=== PATIENT | female | born 1990 ===

== ENCOUNTER 2017-08-21 20:02 | Observation (INO) | payer MEDICAID, OTHER ==
--- NOTE | 2017-08-21 21:13 | ED PDOC ---
Lower Extremity Pain/Injury Time Seen by Provider: 08/21/17 21:03 Chief Complaint (Nursing): Lower Extremity Problem/Injury Chief Complaint (Provider): Ankle pain History Per: Patient History/Exam Limitations: no limitations Onset/Duration Of Symptoms: Days (x1) Current Symptoms Are (Timing): Still Present Severity: Moderate Additional Complaint(s): Fifi Mayers is a 26 y/o female with no past medical history. Called to triage to examine patient. She states she fell down multiple stairs and is now complaining of left ankle pain and swelling. There was no head injury or LOC. Denies any numbness or tingling. Upon arrival, ankle appears to be rotated medially. PMD: None - Ankle/Foot Description Of Injury: Fell Past Medical History Reviewed: Historical Data, Nursing Documentation, Vital Signs Vital Signs: Last Vital Signs Temp 98.0 F 08/21/17 21:00 Pulse 70 08/21/17 21:00 Resp 16 08/21/17 21:00 BP 109/71 08/21/17 21:00 Pulse Ox 100 08/21/17 21:00 - Medical History PMH: No Chronic Diseases - Family History Family History: States: Unknown Family Hx - Immunization History Hx Tetanus Toxoid Vaccination: No - Home Medications Home Medications: Ambulatory Orders Medication Instructions Recorded Naproxen [Naprosyn] 500 mg PO Q6 #30 tablet 02/25/16 - Allergies Allergies/Adverse Reactions: Allergies Allergy/AdvReac Type Severity Reaction Status Date / Time No Known Allergies Allergy Verified 02/25/16 17:00 Review of Systems ROS Statement: Except As Marked, All Systems Reviewed And Found Negative Musculoskeletal: Positive for: Foot Pain (Left ankle pain, + swelling and deformity) Neurological: Negative for: Numbness (or tingling) Physical Exam - Reviewed Nursing Documentation Reviewed: Yes Vital Signs Reviewed: Yes - Physical Exam Appears: Positive for: Non-toxic, No Acute Distress Head Exam: Positive for: ATRAUMATIC, NORMAL INSPECTION, NORMOCEPHALIC Skin: Positive for: Normal Color, Warm, Dry Eye Exam: Positive for: EOMI, Normal appearance, PERRL Neck: Positive for: Normal, Supple Extremity: Positive for: Tenderness (to left ankle), Deformity (to left ankle; rotation medially), Swelling (to left lateral ankle), Other (non-tender left anterior tibia and left knee) Neurologic/Psych: Positive for: Alert, Oriented - Laboratory Results Result Diagrams: 08/21/17 21:23 08/21/17 21:23 - ECG O2 Sat by Pulse Oximetry: 100 (RA) Pulse Ox Interpretation: Normal - Progress ED Course And Treament: morphine 2 mg iv x 1 dose Xry of ankle: no obvious fx xry of foot: possible dislocation noted xry tib fib: wnl seen by podiatry resident. CT of foot/coco ordered anesthesiology Dr. Facundo butler to assist with conscious sedation by podiatry. Medical Decision Making Medical Decision Making: Time: 21:06 Initial Impression: 26 y/o female with left ankle pain and deformity Initial Plan: * BMP * Beta-HCG, quantitative * CBC w/ differential * PTT * Prothrombin time Discussed with podiatry at 21:08. X-rays of left ankle and tib/fib ordered. Pain medicine ordered at 21:09. Scribe Attestation: Documented by Siobhan Menjivar, acting as a scribe for Jose M Gonsalves PA-C Provider Scribe Attestation: All medical record entries made by the Scribe were at my direction and personally dictated by me. I have reviewed the chart and agree that the record accurately reflects my personal performance of the history, physical exam, medical decision making, and the department course for this patient. I have also personally directed, reviewed, and agree with the discharge instructions and disposition. Disposition - Clinical Impression Clinical Impression: Ankle injury - Patient ED Disposition Is Patient to be Admitted: Transfer of Care - Disposition Disposition: Transfer of Care Disposition Time: 00:05 Condition: FAIR Forms: [employer] (Yi) Patient Signed Over To: Sveta Daley
[2017-08-21] MEDS ORDERED: Morphine 4 MG/ML VIAL ONE (21:16)
[2017-08-21 21:29] LABS: BASO % 0.5 % (0.0-2.0); EOS # 0.1 K/uL (0.0-0.7); HEMOGLOBIN 12.6 g/dL (12.0-16.0); LYMPH # 2.7 K/uL (1.0-4.3); LYMPH % 33.2 % (20.0-40.0); MEAN CELL VOLUME 86.6 fl (81.0-99.0); MEAN CORPUSCULAR HEMOGLOBIN 28.2 pg (27.0-31.0); MEAN CORPUSCULAR HGB CONC 32.5 g/dL (33.0-37.0); MEAN PLATELET VOLUME 9.4 fl (7.2-11.7); MONO # 0.6 K/uL (0.0-0.8); MONO % 7.4 % (0.0-10.0); NEUT # 4.7 K/uL (1.8-7.0); NEUT % 57.9 % (50.0-75.0); RBC 4.49 Mil/uL (3.80-5.20); RED CELL DISTRIBUTION WIDTH 12.6 % (11.5-14.5); WHITE BLOOD COUNT 8.1 K/uL (4.8-10.8)
--- NOTE | 2017-08-21 21:38 | CP.PCM.CON ---
History of Present Illness - History of Present Illness History of Present Illness: Podiatry Consult note for Dr. Connelly 26 year old female who denies any PMHx was seen at bedside regarding left ankle pain. She states that tonight around 7 pm she fell down a few stairs. She states that right after the incident she came to the emergency room. She denies hitting her head. Denies any numbness or tingling. States that she only has pain when her ankle is touched. Denies any n/v/f/c/sob/cp. Past Patient History - Infectious Disease Hx of Infectious Diseases: None - Past Social History Smoking Status: Never Smoked - PSYCHIATRIC Hx Substance Use: No - SURGICAL HISTORY Hx Surgeries: No Meds Allergies/Adverse Reactions: Allergies Allergy/AdvReac Type Severity Reaction Status Date / Time No Known Allergies Allergy Verified 02/25/16 17:00 - Medications Medications: Current Medications Morphine Sulfate (Morphine) 2 mg IVP ONCE ONE Stop: 08/21/17 21:26 Last Admin: 08/21/17 21:27 Dose: 2 mg Physical Exam - Constitutional Appears: Well, Non-toxic, No Acute Distress - Extremities Exam Additional comments: Left lower extremity focused exam: Vasc: DP and PT pulses palpable 2/4. CFT < 3 seconds to all digits. Non- pitting edema noted to the left ankle. Derm: No open lesions noted. No erythema noted. Neuro: Gross pedal sensation intact Ortho: Tenderness on palpation to lateral aspect of left ankle. MMT deferred due to pain. At rest, patients foot is plantarflex, and inverted. Patient is able to wiggle toes on left foot - Neurological Exam Neurological exam: Alert, Oriented x3 - Psychiatric Exam Psychiatric exam: Normal Affect, Normal Mood Results - Vital Signs Recent Vital Signs: Last Vital Signs Temp 98.0 F 08/21/17 21:00 Pulse 70 08/21/17 21:00 Resp 16 08/21/17 21:00 BP 109/71 08/21/17 21:00 Pulse Ox 100 08/21/17 21:19 - Labs Result Diagrams: 08/21/17 21:23 08/21/17 21:23 Labs: Laboratory Results - last 24 hr 08/21/17 21:23 WBC 8.1 RBC 4.49 Hgb 12.6 Hct 38.9 MCV 86.6 MCH 28.2 MCHC 32.5 L RDW 12.6 Plt Count 233 MPV 9.4 Neut % (Auto) 57.9 Lymph % (Auto) 33.2 [place] % (Auto) 7.4 Eos % (Auto) 1.0 Baso % (Auto) 0.5 Neut # 4.7 Lymph # 2.7 [place] # 0.6 Eos # 0.1 Baso # 0.0 Assessment & Plan - Assessment and Plan (Free Text) Assessment: 26 year old female with left ankle pain with subtalar joint dislocation Plan: patient examined and evaluated discussed in detail with Dr. Connelly chart, labs, vitals reviewed radiographs reviewed-STJ dislocation noted CT reviewed- STJ dislocation noted consent was obtained and left foot STJ closed reduction was performed under sedation given by anesthiesa Dr. Loredo. The foot was casted with a well padded plaster AO splint. post reduction xrays obtained and showed foot in better alignment patient to remain non-WB to LLE with crutches, patient to keep dressing c/d/i patient to be NPO after midnight podiatry to follow patient while in house
[2017-08-21 21:44] LABS: PARTIAL THROMBOPLASTIN TIME 32.6 Seconds (25.6-37.1); PROTHROMBIN TIME 10.8 Seconds (9.8-13.1)
[2017-08-21 21:54] LABS: CALCIUM 9.2 mg/dL (8.4-10.2); GFR AFRICAN-AMERICAN > 60; GFR NON-AFRICAN AMERICAN > 60
[2017-08-21 21:55] LABS: BLOOD UREA NITROGEN 13 mg/dl (7-17)
[2017-08-21] MEDS ORDERED: Midazolam 2 MG/2 ML VIAL ONE (23:27)
[2017-08-21] MEDS ORDERED: Propofol 10 mg/ml Inj (20 ML) ONE (23:27)
[2017-08-22] MEDS ORDERED: Oxycodone/Acetaminophen 5/325 mg Tab PO PRN (03:00)
[2017-08-22] MEDS: Oxycodone/Acetaminophen 5/325 mg Tab PO PRN (03:38)
--- NOTE | 2017-08-22 06:27 | CP.PCM.HP ---
History of Present Illness - History of Present Illness History of Present Illness: 26 yr old F with no significant PMHx presented to ED with complaint of left ankle and foot swelling and deformity with pain after falling down a few steps. Patient reports she was going down the stairs and missed some steps at the end which caused her to fall. Denies head trauma, syncope, SOB, n/v or chest pain. Denies numbness or tingling in LLE, can move and feel all toes. Reports pain is 10/10 when her left foot is touched, otherwise she has an achy pain 5/10. Is tolerating PO diet, has normal urine and stool output. 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, [facility] Meds: none Allergies: NKDA ED Course: -Labs: CBC wnl, BMP wnl, Coags wnl, Beta Hcg negative -Left foot xray: subtalar joint dislocation -Podiatry: performed closed reduction under sedation, post-reduction xrays showed better alignment Present on Admission - Present on Admission Any Indicators Present on Admission: No History of DVT/PE: No History of Uncontrolled Diabetes: No Urinary Catheter: No Decubitus Ulcer Present: No Review of Systems - Review of Systems All systems: reviewed and no additional remarkable complaints except (for what is mentioned in the HPI) - Constitutional Constitutional: absent: Chills, Fever - EENT Eyes: absent: Change in Vision Ears: absent: Dizziness - Cardiovascular Cardiovascular: absent: Chest Pain, Dyspnea on Exertion, Lightheadedness - Respiratory Respiratory: absent: Cough, Dyspnea - Gastrointestinal Gastrointestinal: absent: Abdominal Pain, Nausea - Genitourinary Genitourinary: absent: Dysuria, Flank Pain, Hematuria - Reproductive: Female Reproductive:Female: Menses 1-7 Days - Musculoskeletal Musculoskeletal: Joint Swelling (left ankle, with deformity) - Integumentary Integumentary: absent: Bleeding Lesions, Unusual Bruising - Neurological Neurological: absent: Dizziness, Headaches - Psychiatric Psychiatric: absent: Confusion, Depression - Hematologic/Lymphatic Hematologic: absent: Easy Bleeding, Easy Bruising Past Patient History - Infectious Disease Hx of Infectious Diseases: None - Past Medical History & Family History Past Medical History?: No - Past Social History Smoking Status: Never Smoked - CARDIAC Hx Cardiac Disorders: No - PULMONARY Hx Respiratory Disorders: No - NEUROLOGICAL Hx Neurological Disorder: No - HEENT Hx HEENT Problems: No - RENAL Hx Chronic Kidney Disease: No - ENDOCRINE/METABOLIC Hx Endocrine Disorders: No - HEMATOLOGICAL/ONCOLOGICAL Hx Blood Disorders: No - INTEGUMENTARY Hx Dermatological Problems: No - MUSCULOSKELETAL/RHEUMATOLOGICAL Hx Musculoskeletal Disorders: No - GENITOURINARY/GYNECOLOGICAL Hx Genitourinary Disorders: No - PSYCHIATRIC Hx Psychophysiologic Disorder: No - SURGICAL HISTORY Hx Surgeries: No - ANESTHESIA Hx Anesthesia: No Hx Anesthesia Reactions: No Meds Allergies/Adverse Reactions: Allergies Allergy/AdvReac Type Severity Reaction Status Date / Time No Known Allergies Allergy Verified 02/25/16 17:00 Physical Exam - Constitutional Appears: No Acute Distress - Head Exam Head Exam: ATRAUMATIC, NORMOCEPHALIC - Eye Exam Eye Exam: EOMI, PERRL (bilateral upper eyelid swelling (patient reports she was crying alot because she doesn't like to be in the hospital)) - ENT Exam ENT Exam: Mucous Membranes Moist - Neck Exam Neck exam: Negative for: Lymphadenopathy, Thyromegaly - Respiratory Exam Respiratory Exam: NORMAL BREATHING PATTERN. absent: Rhonchi, Wheezes - Cardiovascular Exam Cardiovascular Exam: REGULAR RHYTHM, +S1, +S2 - GI/Abdominal Exam GI & Abdominal Exam: Normal Bowel Sounds, Soft. absent: Distended, Tenderness - Extremities Exam Extremities exam: Positive for: full ROM (and normal inspection of right foot), tenderness (left lower extremity in splint from proximal tib/fib to foot, patient can move all toes, normal capillary refill in b/l lower extremities) - Back Exam Back exam: NORMAL INSPECTION - Neurological Exam Neurological exam: Alert, CN II-XII Intact, Oriented x3 - Psychiatric Exam Psychiatric exam: Normal Affect, Normal Mood - Skin Skin Exam: Dry, Intact Results - Vital Signs Recent Vital Signs: Last Vital Signs Temp 98.1 F 08/22/17 03:20 Pulse 83 08/22/17 05:27 Resp 18 08/22/17 05:27 BP 112/63 08/22/17 03:20 Pulse Ox 100 08/22/17 05:27 - Labs Result Diagrams: 08/21/17 21:23 08/21/17 21:23 Labs: Laboratory Results - last 24 hr 08/21/17 08/21/17 08/21/17 21:23 21:23 21:23 WBC 8.1 RBC 4.49 Hgb 12.6 Hct 38.9 MCV 86.6 MCH 28.2 MCHC 32.5 L RDW 12.6 Plt Count 233 MPV 9.4 Neut % (Auto) 57.9 Lymph % (Auto) 33.2 [place] % (Auto) 7.4 Eos % (Auto) 1.0 Baso % (Auto) 0.5 Neut # 4.7 Lymph # 2.7 [place] # 0.6 Eos # 0.1 Baso # 0.0 PT 10.8 INR 1.0 APTT 32.6 Sodium 139 Potassium 4.5 Chloride 107 Carbon Dioxide 22 Anion Gap 15 BUN 13 Creatinine 0.7 Est GFR ( Amer) > 60 Est GFR (Non-Af Amer) > 60 Random Glucose 88 Calcium 9.2 Beta HCG, Quant 08/21/17 21:25 WBC RBC Hgb Hct MCV MCH MCHC RDW Plt Count MPV Neut % (Auto) Lymph % (Auto) [place] % (Auto) Eos % (Auto) Baso % (Auto) Neut # Lymph # [place] # Eos # Baso # PT INR APTT Sodium Potassium Chloride Carbon Dioxide Anion Gap BUN Creatinine Est GFR ( Amer) Est GFR (Non-Af Amer) Random Glucose Calcium Beta HCG, Quant < 2.39 Assessment & Plan - Assessment and Plan (Free Text) Assessment: 26 yr old F with no significant PMHx with left subtalar dislocation s/p closed reduction. 1. Left subtalar dislocation s/p closed reduction -stable -Podiatry on consult: patient to remain NPO for possibility of OR procedure -pain management -non weight bearing -IVF NS at 125 mls/hr 2. DVT prophylaxis -SCD for right lower extremity -will start Lovenox 30mg SC daily pending podiatry re-evaluation this AM - Date & Time Date: 08/22/17 Time: 05:30
[2017-08-22] MEDS: Sodium Chloride 0.9% 1,000 ML IV SCH ×2 (06:39→15:33)
--- NOTE | 2017-08-22 07:10 | CP.PCM.PN ---
Subjective - Date & Time of Evaluation Date of Evaluation: 08/22/17 Time of Evaluation: 07:06 - Subjective Subjective: Podiatry Progress Note - Dr. Connelly 26 year old female unremarkable PMHx seen and evaluated at bedside for left ankle pain s/p STJ dislocation. Patient hemodynamically stable and NAD. Fiance present at bedside. Left leg not elevated. Denies any acute events overnight. Reports mild pain to ankle, well-controlled. Denies any calf pain. Denies N/V/F/ D/C/SOB. Objective - Vital Signs/Intake and Output Vital Signs (last 24 hours): Temp Pulse Resp BP Pulse Ox 98.1 F 83 18 112/63 100 08/22/17 03:20 08/22/17 05:27 08/22/17 05:27 08/22/17 03:20 08/22/17 05:27 Intake and Output: 08/22/17 08/22/17 06:59 18:59 Intake Total 30 Balance 30 - Medications Medications: Current Medications Sodium Chloride (Sodium Chloride 0.9%) 1,000 mls @ 125 mls/hr IV .Q8H YANDY Stop: 08/22/17 21:44 Last Admin: 08/22/17 06:39 Dose: 125 mls/hr Oxycodone/Acetaminophen (Percocet 5/325 Mg Tab) 1 tab PO Q6 PRN PRN Reason: Pain, moderate (4-7) Stop: 08/25/17 03:01 Oxycodone/Acetaminophen (Percocet 5/325 Mg Tab) 2 tab PO Q6 PRN PRN Reason: Pain, severe (8-10) Stop: 08/25/17 03:01 Last Admin: 08/22/17 03:38 Dose: 2 tab - Labs Labs: 08/21/17 21:23 08/21/17 21:23 PT 10.8 Seconds (9.8-13.1) 08/21/17 21:23 INR 1.0 (0.9-1.2) 08/21/17 21:23 APTT 32.6 Seconds (25.6-37.1) 08/21/17 21:23 - Constitutional Appears: Well, Non-toxic, No Acute Distress - Extremities Exam Additional comments: Neurovascular status intact to left digits 1-5. Dressing clean/dry/intact - Neurological Exam Neurological Exam: Alert, Awake, Oriented x3 - Psychiatric Exam Psychiatric exam: Normal Affect, Normal Mood Assessment and Plan - Assessment and Plan (Free Text) Assessment: 26 year old female unremarkable PMHx with left ankle pain with subtalar joint dislocation s/p closed reduction Plan: Patient seen and evaluated at bedside with attending, Dr. Connelly Afebrile, absent leukocytosis radiographs reviewed-STJ dislocation noted -f/u XR show adequate reduction of STJ CT reviewed- STJ dislocation noted AO splint maintained - will continue to monitor Pt NWB LLE with the assistance of crutches L foot and ankle MRI obtained: -Complete tear of the anterior tib-fib ligament and ATFL -Partial thickness tear and high grade sprain of posterior tib-fib ligament and PTFL -TNJ relocated Ortho consult obtained for left knee pain Podiatry will continue to follow patient while in house
--- NOTE | 2017-08-22 10:38 | RAD ---
PROCEDURE: Left Ankle Radiographs. HISTORY: ANKLE INJURY COMPARISON: None FINDINGS: BONES: No fracture. JOINTS: Normal. Ankle mortise maintained. Talar dome intact SOFT TISSUES: Lateral malleolar soft tissue swelling. OTHER FINDINGS: None. IMPRESSION: Lateral malleolar soft tissue swelling without demonstrated fracture or dislocation.
--- NOTE | 2017-08-22 10:38 | RAD ---
PROCEDURE: Radiographs of the left tibia and fibula. HISTORY: INJURY COMPARISON: None available. TECHNIQUE: Frontal and lateral views obtained. FINDINGS: BONES: No fracture or destructive lesion. JOINT SPACES: Unremarkable. OTHER FINDINGS: Lateral malleolar soft tissue swelling. IMPRESSION: Lateral malleolar soft tissue swelling without demonstrated fracture or dislocation.
--- NOTE | 2017-08-22 10:39 | RAD ---
PROCEDURE: Left Foot Radiographs. HISTORY: injury COMPARISON: None. FINDINGS: BONES: Normal. No fracture. JOINTS: Normal. SOFT TISSUES: Lateral malleolar soft tissue swelling. OTHER FINDINGS: None. IMPRESSION: Lateral malleolar soft tissue swelling without demonstrated fracture or dislocation.
--- NOTE | 2017-08-22 10:56 | RAD ---
PROCEDURE: Left Foot Radiographs. HISTORY: left STJ dislocation COMPARISON: None. FINDINGS: Pre and post casted views of the left foot demonstrate no appreciable fracture or dislocation. IMPRESSION: No appreciable fracture or dislocation.
--- NOTE | 2017-08-22 11:39 | CT ---
PROCEDURE: HISTORY: ANKLE INJURY/FOOT INJURY COMPARISON: TECHNIQUE: FINDINGS: No fracture dislocation is observed. There is mild lateral soft tissue swelling extending superiorly along the distal tibia. IMPRESSION: Lateral soft tissue contusion. No fracture.
--- NOTE | 2017-08-22 16:14 | MRI ---
PROCEDURE: MRI of the right ankle HISTORY: left STJ dislocation COMPARISON: Comparison is made to the previous x-ray of the right ankle TECHNIQUE: Axial coronal and sagittal MRI images of the right ankle were obtained without IV contrast administration. FINDINGS: There is complete tear of the anterior tibiofibular ligament. There is partial-thickness tear of the posterior tibiofibular ligament. There is complete tear of the anterior talofibular ligament. There is high-grade sprain and partial-thickness tear of the posterior talofibular ligament. There is also partial thickness tear involving the medial collateral ligaments particulate the tibial navicular ligament. There is no evidence of bone marrow edema to suggest acute fracture. There is no evidence of dislocation at the tibiotalar joint. The talar dome is intact without evidence of defect or bone marrow edema. The talar navicular joint is also intact without evidence of dislocation. There is small amount of fluid seen at the subtalar joint. There is acute injury of the subtalar ligaments. Subcutaneous inflammatory changes and edema noted around the right ankle more prominent posteriorly. There is is small joint effusion seen. The Achilles tendon is intact. The visualized portion of the plantar fasciitis is intact. There is small amount of fluid surrounding the posterior tibial es tendinopathy. There is also small amount of fluid surrounding the peroneal tendon suggestive of acute tendinopathy. Subcutaneous edema noted more prominent at the lateral aspect of the right ankle. IMPRESSION: Acute posttraumatic changes seen with multiple ligaments injury as described above. Complete tear of the anterior tibiofibular ligament and anterior talofibular ligament noted. Partial thickness tear and high-grade sprain noted of the posterior tibiofibular ligament and posterior talofibular. The talonavicular joint is located.
--- NOTE | 2017-08-22 16:31 | MRI ---
PROCEDURE: MRI of the right foot without contrast HISTORY: left STJ dislocation COMPARISON: Comparison is made to previous x-ray of the right foot. TECHNIQUE: Axial coronal and sagittal MRI images of the right foot were obtained without IV contrast administration. FINDINGS: There is no evidence of bone marrow edema or cortical destruction to suggest acute fracture at the right foot. Posttraumatic changes and ligament injury partially imaged in this study noted at the right ankle and proximal portion of the right foot and described in the previous same-day MRI of the right ankle. There are subcutaneous edema noted around the right ankle and proximal right foot. There is mild edema at the 1st and 2nd tarsal metatarsal articulation suspicious for mild grade 1-2 Lisfranc injury. Otherwise the visualized soft tissue of the right foot are grossly unremarkable. IMPRESSION: No evidence of acute fracture or dislocation at the visualized portion of the right foot. Post traumatic soft tissue injury around the right ankle and proximal right foot. Mild grade 1-2 Lisfranc sprain/acute injury.
[2017-08-22] MEDS: Enoxaparin 40 mg Syringe SC ONE ×2 (20:35→20:36)
--- NOTE | 2017-08-23 08:00 | CP.PCM.CON ---
History of Present Illness - History of Present Illness History of Present Illness: Orthopedic consultation Dr. Avery 26F complains of left ankle pain after fall down some stairs, treated by podiatry, now complaining of left knee pain as well. She says she is having some outer thigh pain, but not as bad as knee. Denies numbness/tingling, no prior knee injury. Review of Systems - Review of Systems All systems: reviewed and no additional remarkable complaints except - Constitutional Additional comments: no fever chills - Cardiovascular Cardiovascular: As Per HPI - Respiratory Respiratory: As Per HPI - Musculoskeletal Musculoskeletal: As Per HPI - Neurological Neurological: As Per HPI - Hematologic/Lymphatic Hematologic: absent: As Per HPI, Easy Bleeding, Easy Bruising, Lymphadenopathy, Other Past Patient History - Infectious Disease Hx of Infectious Diseases: None - Past Medical History & Family History Past Medical History?: No - Past Social History Smoking Status: Never Smoked - CARDIAC Hx Cardiac Disorders: No - PULMONARY Hx Respiratory Disorders: No - NEUROLOGICAL Hx Neurological Disorder: No - HEENT Hx HEENT Problems: No - RENAL Hx Chronic Kidney Disease: No - ENDOCRINE/METABOLIC Hx Endocrine Disorders: No - HEMATOLOGICAL/ONCOLOGICAL Hx Blood Disorders: No - INTEGUMENTARY Hx Dermatological Problems: No - MUSCULOSKELETAL/RHEUMATOLOGICAL Hx Musculoskeletal Disorders: No - GENITOURINARY/GYNECOLOGICAL Hx Genitourinary Disorders: No - PSYCHIATRIC Hx Substance Use: No - SURGICAL HISTORY Hx Surgeries: No - ANESTHESIA Hx Anesthesia: No Hx Anesthesia Reactions: No Meds Home Medications: Home Medication List Medication Instructions Recorded Confirmed Type Acetaminophen/Hydrocodone Bi 1 tab PO Q6 PRN #5 tab 08/23/17 Rx [Vicodin 300 mg-5 mg] Ibuprofen [Motrin] 600 mg PO Q8 PRN #30 tab 08/23/17 Rx Allergies/Adverse Reactions: Allergies Allergy/AdvReac Type Severity Reaction Status Date / Time No Known Allergies Allergy Verified 02/25/16 17:00 - Medications Medications: Current Medications Ondansetron HCl (Zofran Tab) 4 mg PO Q4 PRN PRN Reason: Nausea/Vomiting Last Admin: 08/22/17 15:35 Dose: 4 mg Oxycodone/Acetaminophen (Percocet 5/325 Mg Tab) 1 tab PO Q6 PRN PRN Reason: Pain, moderate (4-7) Stop: 08/25/17 03:01 Last Admin: 08/22/17 12:08 Dose: 1 tab Oxycodone/Acetaminophen (Percocet 5/325 Mg Tab) 2 tab PO Q6 PRN PRN Reason: Pain, severe (8-10) Stop: 08/25/17 03:01 Last Admin: 08/22/17 03:38 Dose: 2 tab Physical Exam - Constitutional Appears: Well, No Acute Distress - Head Exam Head Exam: ATRAUMATIC - Expanded Lower Extremities Exam Left Knee exam: full ROM, normal inspection Neuro vacular tendon exam: no vascular compromise (No left knee joint effusion, no erythema, skin intact. Mild laxity to varus/valgus/irais but not painful and good endpoints. TTP anterior knee, generalized. ) - Neurological Exam Neurological exam: Alert, Oriented x3 - Psychiatric Exam Psychiatric exam: Normal Affect, Normal Mood - Skin Skin Exam: Dry, Intact, Normal Color, Warm Results - Vital Signs Recent Vital Signs: Last Vital Signs Temp 97.7 F 08/23/17 00:00 Pulse 74 08/23/17 00:00 Resp 18 08/23/17 00:00 BP 101/64 08/23/17 00:00 Pulse Ox 98 08/23/17 00:00 - Labs Result Diagrams: 08/21/17 21:23 08/21/17 21:23 Labs: Laboratory Results - last 24 hr 08/22/17 12:15 HIV-1 Ab Rapid Screen Non reactive Assessment & Plan (1) Left knee pain Assessment and Plan: left knee pain after fall xrays completed, AP/lat, no noted fracture/dislocation, awaiting official reading left knee MRI continue PT/OT, NWB thigh pain is likely due to muscular pain from lifting heavy splint d/w Dr. Avery, agrees with above Addendum, MRI reviewed, ACL sprain. No orthopedic intervention indicated. Pt can f/u ortho as outpt prn. Ortho stable for d/c Status: Acute Priority: Low Comment: Patient Name / ID : SHARMAINE LIN / [id number]. Exam Date : 08/23/2017 09:30:14 ( Approved ). Study Comment : Sex / Age : F / 26Y. Creator : Jeffrey Mott MD. Dictator : Jeffrey Mott MD. Automation Control Integrator : Asbestos Siding Installer : Jeffrey Mott MD. Approver2 : Report Date : 08/23/2017 11:44 :06. My Comment : . PROCEDURE: MRI Left Knee. HISTORY: Pain. COMPARISON: None available. TECHNIQUE: Multiecho multiplanar sequences were performed through the left knee. FINDINGS: ANTERIOR CRUCIATE LIGAMENT:: Mild increased fluid signal intensity at the distal segment suggest likely sprain favored over partial tear. POSTERIOR CRUCIATE LIGAMENT:: No acute tear identified. MEDIAL MENISCUS:: No acute tear identified. Articular surfaces appear intact throughout. LATERAL MENISCUS:: No acute tear identified. Articular surfaces appear intact throughout. MEDIAL COLLATERAL LIGAMENT:: Intact without acute tear. LATERAL COLLATERAL LIGAMENT COMPLEX:: Intact without acute tear. QUADRICEPS TENDON:: Intact. PATELLAR TENDON:: Intact. CARTILAGE:: Inhomogeneous signal in the patellofemoral cartilage indicates mild chondromalacia. Volume loss at the medial femorotibial compartment indicates the same. JOINT FLUID:: Unremarkable. OSSEOUS STRUCTURES:: Intact. OTHER FINDINGS: Extracapsular soft tissues appear diffusely unremarkable as well. IMPRESSION: Findings suspicious for limited probable sprain rather than partial tear of the distal ACL. Remainder the examination appears unremarkable.
--- NOTE | 2017-08-23 08:06 | CP.PCM.PN ---
Subjective - Date & Time of Evaluation Date of Evaluation: 08/23/17 Time of Evaluation: 08:05 - Subjective Subjective: Podiatry Progress Note - Dr. Connelly 26 year old female unremarkable PMHx seen and evaluated at bedside for left ankle pain s/p STJ dislocation. Patient hemodynamically stable and NAD. Denies any acute events overnight. Reports mild discomfort to LLE, complaining more of left knee pain than ankle pain. Denies any calf pain or SOB. Patient states she worked with physical therapy yesterday with no issues. Denies N/V/F/D/C. Objective - Vital Signs/Intake and Output Vital Signs (last 24 hours): Temp Pulse Resp BP Pulse Ox 97.7 F 74 18 101/64 98 08/23/17 00:00 08/23/17 00:00 08/23/17 00:00 08/23/17 00:00 08/23/17 00:00 - Medications Medications: Current Medications Ondansetron HCl (Zofran Tab) 4 mg PO Q4 PRN PRN Reason: Nausea/Vomiting Last Admin: 08/22/17 15:35 Dose: 4 mg Oxycodone/Acetaminophen (Percocet 5/325 Mg Tab) 1 tab PO Q6 PRN PRN Reason: Pain, moderate (4-7) Stop: 08/25/17 03:01 Last Admin: 08/22/17 12:08 Dose: 1 tab Oxycodone/Acetaminophen (Percocet 5/325 Mg Tab) 2 tab PO Q6 PRN PRN Reason: Pain, severe (8-10) Stop: 08/25/17 03:01 Last Admin: 08/22/17 03:38 Dose: 2 tab - Labs Labs: 08/21/17 21:23 08/21/17 21:23 PT 10.8 Seconds (9.8-13.1) 08/21/17 21:23 INR 1.0 (0.9-1.2) 08/21/17 21:23 APTT 32.6 Seconds (25.6-37.1) 08/21/17 21:23 - Constitutional Appears: Well, Non-toxic, No Acute Distress - Extremities Exam Additional comments: Neurovascular status intact to left digits 1-5. Dressing clean/dry/intact - Neurological Exam Neurological Exam: Alert, Awake, Oriented x3 - Psychiatric Exam Psychiatric exam: Normal Affect, Normal Mood Assessment and Plan - Assessment and Plan (Free Text) Assessment: 26 year old female unremarkable PMHx with left ankle pain with subtalar joint dislocation s/p closed reduction Plan: Patient seen and evaluated at bedside with attending, Dr. Connelly Afebrile radiographs reviewed-STJ dislocation noted -f/u XR show adequate reduction of STJ CT reviewed- STJ dislocation noted AO splint maintained - will continue to monitor Continue use of incentive spirometer Pt NWB LLE with the assistance of crutches -Continue PT L foot and ankle MRI obtained: -Complete tear of the anterior tib-fib ligament and ATFL -Partial thickness tear and high grade sprain of posterior tib-fib ligament and PTFL -TNJ relocated Discussed with patient that she may need future surgery due to ligamentous injury and possible lateral ankle instability. Patient demonstrated verbal understanding Pain mgmt per medicine Advised patient to follow up with attending, Dr. Connelly, in office within 1 week of discharge Podiatry will continue to follow patient while in house
[2017-08-23 08:12] LABS: BARBITURATES, UR NEGATIVE (NEGATIVE); PHENCYCLIDINE, UR NEGATIVE (NEGATIVE)
[2017-08-23 08:16] LABS: BENZODIAZEPINES, UR POSITIVE (NEGATIVE); OPIATES, UR POSITIVE (NEGATIVE)
--- NOTE | 2017-08-23 08:21 | RAD ---
PROCEDURE: Left Knee Radiographs. HISTORY: Pain. COMPARISON: None. FINDINGS: BONES: No acute fracture or destructive bony lesion identified. JOINTS: Normal. No osteoarthritis. JOINT EFFUSION: None. OTHER FINDINGS: None. IMPRESSION: No acute fracture or dislocation left knee. Cast only partially captured covering the upper segment of the left leg obscures fine bony and soft-tissue detail. Visualized distal thigh is unremarkable.
--- NOTE | 2017-08-23 08:34 | CP.PCM.DIS ---
Provider - Provider Date of Admission: 08/22/17 00:40 Attending physician: Chelsy Miguel MD Time Spent in preparation of Discharge (in minutes): 30 Diagnosis - Discharge Diagnosis (1) Ankle injury Status: Acute Priority: Low Comment: keep splint C/D/I and remain NWB to LLE with crutches. f/u [facility] office (2) Left knee pain Status: Acute Priority: Low Comment: f/u Dr. Avery office Hospital Course - Lab Results Lab Results: Most Recent Lab Values WBC 8.1 K/uL (4.8-10.8) 08/21/17 21: RBC 4.49 Mil/uL (3.80-5.20) 08/21/17 21: Hgb 12.6 g/dL (12.0-16.0) 08/21/17 21: Hct 38.9 % (34.0-47.0) 08/21/17 21: MCV 86.6 fl (81.0-99.0) 08/21/17 21: MCH 28.2 pg (27.0-31.0) 08/21/17 21: MCHC 32.5 g/dL (33.0-37.0) L 08/21/17 21: RDW 12.6 % (11.5-14.5) 08/21/17 21: Plt Count 233 K/uL (130-400) 08/21/17 21:23 MPV 9.4 fl (7.2-11.7) 08/21/17 21: Neut % (Auto) 57.9 % (50.0-75.0) 08/21/17 21: Lymph % (Auto) 33.2 % (20.0-40.0) 08/21/17 21: Ball[place] % (Auto) 7.4 % (0.0-10.0) 08/21/17 21: Eos % (Auto) 1.0 % (0.0-4.0) 08/21/17 21: Baso % (Auto) 0.5 % (0.0-2.0) 08/21/17 21: Neut # 4.7 K/uL (1.8-7.0) 08/21/17 21:23 Lymph # 2.7 K/uL (1.0-4.3) 08/21/17 21:23 Ballard # 0.6 K/uL (0.0-0.8) 08/21/17 21:23 Eos # 0.1 K/uL (0.0-0.7) 08/21/17 21:23 Baso # 0.0 K/uL (0.0-0.2) 08/21/17 21:23 PT 10.8 Seconds (9.8-13.1) 08/21/17 21:23 INR 1.0 (0.9-1.2) 08/21/17 21:23 APTT 32.6 Seconds (25.6-37.1) 08/21/17 21:23 Sodium 139 mmol/l (132-148) 08/21/17 21:23 Potassium 4.5 MMOL/L (3.6-5.0) 08/21/17 21:23 Chloride 107 mmol/L (98-107) 08/21/17 21:23 Carbon Dioxide 22 mmol/L (22-30) 08/21/17 21:23 Anion Gap 15 (10-20) 08/21/17 21:23 BUN 13 mg/dl (7-17) 08/21/17 21:23 Creatinine 0.7 mg/dl (0.7-1.2) 08/21/17 21:23 Est GFR ( Amer) > 60 08/21/17 21:23 Est GFR (Non-Af Amer) > 60 08/21/17 21:23 Random Glucose 88 mg/dL (65-105) 08/21/17 21:23 Calcium 9.2 mg/dL (8.4-10.2) 08/21/17 21:23 Beta HCG, Quant < 2.39 mIU/mL 08/21/17 21:25 Urine Opiates Screen Positive (NEGATIVE) H 08/22/17 07:26 Urine Methadone Screen Negative (NEGATIVE) 08/22/17 07:26 Ur Barbiturates Screen Negative (NEGATIVE) 08/22/17 07:26 Ur Phencyclidine Scrn Negative (NEGATIVE) 08/22/17 07:26 Ur Amphetamines Screen Negative (NEGATIVE) 08/22/17 07:26 U Benzodiazepines Scrn Positive (NEGATIVE) 08/22/17 07:26 U Oth Cocaine Metabols Negative (NEGATIVE) 08/22/17 07:26 U Cannabinoids Screen Negative (NEGATIVE) 08/22/17 07:26 HIV-1 Ab Rapid Screen Non reactive (NON REAC) 08/22/17 12:15 - Hospital Course Hospital Course: 26 y/o female with no significant PMHx admitted for left ankle dislocation after falling down the stairs. Patient underwent a closed reduction under conscious sedation with the podiatry team in the ED. Patient was also found to have left knee pain, and x-rays and MRI's were obtained of the left knee, ankle and foot. The MRI of the left ankle revealed multiple ligamentous tears, and the left knee MRI revealed a probably sprain of the distal ACL. Patient was evaluated and trained on crutches by physical therapy while in house. Patient's pain was well controlled with Percocet and decreased significantly since initial injury. Patient will be discharged home in stable condition and is to remain non weight-bearing to the left lower extremity with crutches. Patient will be dispensed paper prescriptions for Ibuprofen and Vicodin for pain control. Patient will follow up with Dr. Connelly for her left ankle injury and Dr. Avery for her left knee injury. Discharge Exam - Head Exam Head Exam: ATRAUMATIC, NORMOCEPHALIC - Eye Exam Eye Exam: Normal appearance Pupil Exam: PERRL - ENT Exam ENT Exam: Normal Exam - Neck Exam Neck exam: Full Rom, Normal Inspection - Respiratory Exam Respiratory Exam: Clear to PA & Lateral, UNREMARKABLE. absent: Chest Wall Tenderness, Respiratory Distress - Cardiovascular Exam Cardiovascular Exam: REGULAR RHYTHM, +S1, +S2 - GI/Abdominal Exam GI & Abdominal Exam: Normal Bowel Sounds, Soft - Rectal Exam Rectal Exam: Deferred - Extremities Exam Extremities exam: normal capillary refill Additional comments: AO splint to LLE remains C/D/I mild tenderness elicited on active and passive knee flexion/extension cap refill time < 3 sec to all digits no posterior calf tenderness noted at proximal aspect of splint pt able to wiggle toes without difficulty Discharge Plan - Discharge Medications Prescriptions: Acetaminophen/Hydrocodone Bi [Vicodin 300 mg-5 mg] 1 tab PO Q6 PRN #5 tab PRN Reason: Pain, Moderate (4-7) Ibuprofen [Motrin] 600 mg PO Q8 PRN #30 tab PRN Reason: Pain, Mild (1-3) - Follow Up Plan Condition: GOOD Disposition: HOME/ ROUTINE Patient education suggested?: Yes Instructions: Hydrocodone/Acetaminophen (By mouth), Ibuprofen (By mouth), Crutch Instructions (DC), RICE Therapy (GEN), Non Weight Bearing Activity (DC) Referrals: Jose Eduardo Connelly DPM [Staff Provider] - Clem Avery III, MD [Staff Provider] -
[2017-08-23 08:56] VITALS: BP 101/63; PULSE 78; RESP 20; TEMP 98.6; O2SAT 97
--- NOTE | 2017-08-23 11:49 | MRI ---
PROCEDURE: MRI Left Knee HISTORY: Pain. COMPARISON: None available. TECHNIQUE: Multiecho multiplanar sequences were performed through the left knee. FINDINGS: ANTERIOR CRUCIATE LIGAMENT:: Mild increased fluid signal intensity at the distal segment suggest likely sprain favored over partial tear. POSTERIOR CRUCIATE LIGAMENT:: No acute tear identified. MEDIAL MENISCUS:: No acute tear identified. Articular surfaces appear intact throughout. LATERAL MENISCUS:: No acute tear identified. Articular surfaces appear intact throughout. MEDIAL COLLATERAL LIGAMENT:: Intact without acute tear. LATERAL COLLATERAL LIGAMENT COMPLEX:: Intact without acute tear. QUADRICEPS TENDON:: Intact. PATELLAR TENDON:: Intact. CARTILAGE:: Inhomogeneous signal in the patellofemoral cartilage indicates mild chondromalacia. Volume loss at the medial femorotibial compartment indicates the same. JOINT FLUID:: Unremarkable OSSEOUS STRUCTURES:: Intact. OTHER FINDINGS: Extracapsular soft tissues appear diffusely unremarkable as well. IMPRESSION: Findings suspicious for limited probable sprain rather than partial tear of the distal ACL. Remainder the examination appears unremarkable.
[2017-08-23] MEDS: Oxycodone/Acetaminophen 5/325 mg Tab PO PRN (14:46)
== END 2017-08-23 16:10 | disposition home or self-care (01) ==
LOC: H.ER 20:02 → H.ERHOLD 08-22 00:40 → H.MEDSURG1 08-22 03:21
PROVIDERS: ADMIT Family Medicine Geriatric Medicine; ATTEND Family Medicine Geriatric Medicine
DX: S93.05XA Dislocation of left ankle joint, initial encounter (principal); S83.512A Sprain of anterior cruciate ligament of left knee, initial encounter; W10.9XXA Fall (on) (from) unspecified stairs and steps, initial encounter
CPT/HCPCS: 27842; 73560; 73590; 73610; 73630; 73700; 73718; 73721; 80048; 81025; 84702; 85025; 85610; 85730; 87390; 96374; 97116; 97161; 99285; G0378; G0480; G8978; G8979; G8980; J1650; J2250; J2270; J2704; J3010; J7040

== ENCOUNTER 2018-09-09 19:35 | Inpatient (IN) | payer MEDICAID ==
[2018-09-09 19:37] VITALS: BMI 31.5
[2018-09-09] MEDS ORDERED: Lactated Ringer's 1,000 ML IV ONE (19:37)
[2018-09-09] MEDS ORDERED: Lactated Ringer's 1,000 ML IV SCH (19:45)
[2018-09-09 20:33] LABS: BASO # 0.1 K/uL (0.0-0.2); BASO % 0.5 % (0.0-2.0); EOS % 0.3 % (0.0-4.0); HEMOGLOBIN 12.9 g/dL (12.0-16.0); LYMPH # 2.1 K/uL (1.0-4.3); LYMPH % 18.5 % (20.0-40.0); MEAN CELL VOLUME 87.8 fl (81.0-99.0); MEAN CORPUSCULAR HEMOGLOBIN 29.2 pg (27.0-31.0); MEAN CORPUSCULAR HGB CONC 33.3 g/dL (33.0-37.0); MEAN PLATELET VOLUME 9.1 fl (7.2-11.7); MONO # 0.6 K/uL (0.0-0.8); MONO % 5.7 % (0.0-10.0); NEUT # 8.4 K/uL (1.8-7.0); RBC 4.4 Mil/uL (3.80-5.20); RED CELL DISTRIBUTION WIDTH 13.8 % (11.5-14.5); WHITE BLOOD COUNT 11.2 K/uL (4.8-10.8)
--- NOTE | 2018-09-09 22:23 | OBADHP ---
Datetime: 09/09/2018 19:30 Admit Comment, IP Provider: 27 y/o female w/ no pmhx at 41.2wks GA presents to L_D for inductio n of labor due to post-term . She denies any complications during . Patient denies fluid loss, vaginal bleed. She endorses movements. OB: [facility] Dr. Mota Pmhx: denies Famhx: denies HomeRx: vitamins Socialhx: denies tobacco, etoh, and recreational drug use Surghx: denies Allergies: NKDA ROS: negative except as per HPI Physical Exam: Gen: sitting up comfortably in bed Heart: S1 S2 present, normal RRR Lungs: normal respiratory effort, clear to auscultation bilaterally Abd: Gravid, soft, non-tender. Normal BS. Extremities: +1 edema, no erythema or tenderness Assessment and Plan 27 y/o female w/ no pmhx at 41.2wks GA presents to L_D for induction of labor due to post-ter m . GBS neg, HIV neg, HBsAg neg, RPR neg Admit to L_D heart and toco monitoring CBC, type and screen Cervidil 10mg Vag x1 1L LR IV bolus, 1L LR @ 125mL/hr Regular diet Can have epidural, consult anesthesiology Case discussed w/ attending, Dr. Miky Ryan MD, pgyi Addendum by Dr. Bolaños: I have evaluated the patient indenpendently and I agree with the above Pelvic Type - PN: Not Done Extremities - PN: Normal Abdomen - PN: Normal Back - PN: Not Done Breast - PN: Not Done Lungs - PN: Normal Heart - PN: Normal Thyroid - PN: Not Done Neurologic - PN: Not Done HEENT - PN: Not Done General - PN: Normal Presentation-Admit: Vertex FHR - Baseline A Provider: 145 Contraction Comments Provider: irregular Comments, ACOG Physical Exam: U/S at bedside shows fetus in cephalic position. Gestation - Est Wks by US: 41.2 IP Hx Assessment: The History has been Reviewed and is Current Vital Signs Provider: Reviewed; Within Normal Limits IP Chief Complaint: Scheduled induction of labor NICHD Variability Prov Fetus A: Moderate 6-25bpm NICHD Decel Fetus A IP Provider: None Genitourinary Exam: Not Done DTRs - PN: Not Done IP Adm Impression: Postterm, intrauterine IP Admit Plan: Admit to unit; Initiate labor induction protocol
[2018-09-10] MEDS ORDERED: Lactated Ringer's 1,000 ML IV SCH (15:00)
[2018-09-10] MEDS: Lactated Ringer's 1,000 ML IV SCH ×3 (16:00→20:49)
[2018-09-11] MEDS: Lactated Ringer's 1,000 ML IV SCH ×3 (01:06→14:35)
--- NOTE | 2018-09-11 01:12 | OBPN ---
Datetime: 09/10/2018 09:49 IP Progress Impression: Normal progression of labor IP Informed Consent Obtain: Induction of Labor IP Progress Plan: Cervical Ripening Membranes, Provider: Intact FHR - Baseline A Provider: 130 IP Progress Note Comment: Patient seen and evaluated at bedside. Cervidil removed at 9:36 AM. withou t any complication. Irregular CTX on monitor Cervix: 1 cm/thick/Posterior A/P: 27 y/o presents for induction of labor Cervidil removed Cytotec 50 mcg Q50 hr Monitor cervical changes OB Hospitalistnote: pt seen and agree with PGY1 note. Pt's questoins answered. MAHERENDIRAO NICHD Accel Fetus A IP Provider: [id number] FHR Category Provider Fetus A: Category I NICHD Variability Prov Fetus A: Moderate 6-25bpm Dilatation, Provider: 1 Effacement, Provider: thick Station, Provider: Post NICHD Decel Fetus A IP Provider: None Datetime: 09/09/2018 19:30 Contraction Comments Provider: irregular Gestation - Est Wks by US: 41.2 Presentation-Admit: Vertex Vital Signs Provider: Reviewed; Within Normal Limits
[2018-09-11] MEDS ORDERED: Oxytocin 30 UNIT 30 UNITS/500 ML BAG IV ONE ×3 (07:49→07:57)
[2018-09-11] MEDS ORDERED: OXYTOCIN/0.9 % NS 20 UNIT/1,000 ML BAG IV SCH (08:00)
[2018-09-11] MEDS ORDERED: Fentanyl/Bupivacaine HCl 250 ML EPI ONE ×2 (11:36→11:45)
[2018-09-11] MEDS ORDERED: Lactated Ringer's 1,000 ML IV ONE ×2 (13:22→13:24)
[2018-09-12] MEDS ORDERED: Bupivacaine HCl 0.5% PF (30 ml) Inj ONE (05:48)
[2018-09-12] MEDS ORDERED: Bupivacaine HCl 0.25% PF (10 ml) Inj ONE (08:58)
--- NOTE | 2018-09-12 09:57 | US ---
Date of service: 09/11/2018 PROCEDURE: Bilateral lower extremity venous duplex Doppler. HISTORY: r/o DVT COMPARISON: None available. TECHNIQUE: Bilateral common femoral, superficial femoral, popliteal and posterior tibial veins were evaluated. Flow was assessed with color Doppler, compressibility, assessment of phasic flow and augmentation response. FINDINGS: COMMON FEMORAL VEIN: Right CFV: Unremarkable. Left CFV: Unremarkable. SUPERFICIAL FEMORAL VEIN: Right SFV: Unremarkable. Left SFV: Unremarkable. POPLITEAL VEIN: Right Popliteal: Unremarkable. Left Popliteal: Unremarkable. POSTERIOR TIBIAL VEIN: Right PTV: Unremarkable. Left PTV: Unremarkable. OTHER FINDINGS: No popliteal cyst noted. IMPRESSION: No evidence of deep venous thrombosis. Concordant results (preliminary interpretation) provided by [facility].
[2018-09-12] MEDS ORDERED: ceFAZolin IV 2 gm in Dextrose 2 GM/50 ML BAG IVPB ONE ×2 (10:46→11:16)
[2018-09-12] MEDS ORDERED: Lactated Ringer's 1,000 ML IV ONE (11:16)
[2018-09-12] MEDS ORDERED: Azithromycin 500 MG in Sodium Chloride 0.9% 250 ML IVPB STA (11:18)
[2018-09-12] MEDS ORDERED: EPINEPHrine 1 mg/ml (1:1000) Inj ONE (11:41)
[2018-09-12] MEDS ORDERED: Lidocaine 2% MPF (5 ml) Inj ONE (11:42)
[2018-09-12] MEDS ORDERED: Morphine 1 mg/ml preservative-free Inj(Duramorph) ONE (12:04)
[2018-09-12] MEDS ORDERED: Phenylephrine 10 mg/ml Inj ONE ×2 (12:30)
[2018-09-12] MEDS ORDERED: Labetalol 5mg/ml (4ml) ONE (12:33)
[2018-09-12] MEDS ORDERED: Morphine 4 MG/ML VIAL IVP PRN (13:55)
[2018-09-12] MEDS ORDERED: Oxycodone/Acetaminophen 5/325 mg Tab PO PRN (15:15)
--- NOTE | 2018-09-12 20:31 | CARD ---
APPROVED REPORT Date of service: 09/12/2018 EKG Measurement Heart [id number] <Conclusion> Normal sinus rhythm Normal ECG
--- NOTE | 2018-09-12 20:49 | CARD ---
APPROVED REPORT Date of service: 09/12/2018 EXAM: Two-dimensional and M-mode echocardiogram with Doppler and color Doppler. Other Information Quality : GoodRhythm : NSR INDICATION Dyspnea Post 2D DIMENSIONS IVSd0.70 (0.7-1.1cm)LVDd4.29 (3.9-5.9cm) LVOT Diameter1.95 (1.8-2.4cm)PWd0.77 (0.7-1.1cm) IVSs1.11 (0.8-1.2cm)LVDs3.07 (2.5-4.0cm) FS (%) 28.5 %PWs1.02 (0.8-1.2cm) M-Mode DIMENSIONS Left Atrium (MM)3.53 (2.5-4.0cm)IVSd0.72 (0.7-1.1cm) Aortic Root2.65 (2.2-3.7cm)LVDd4.08 (4.0-5.6cm) Aortic Cusp Exc.1.90 (1.5-2.0cm)PWd0.69 (0.7-1.1cm) IVSs1.08 cmFS (%) 34 % LVDs2.67 (2.0-3.8cm)PWs1.08 cm Aortic Valve AoV Peak Lcjbyjvc371.1cm/sAoV VTI26.0cmAO Peak GR.9mmHg LVOT Peak Takstctr48.3cm/sLVOT VTI15.87cmAO Mean GR.5mmHg HOWIE (VMAX)1.77hd1UTU (VTI)1.10cm2 Mitral Valve MV E Zxwguvqq35.1cm/sMV DECEL [id number] A Pomjozfh12.1cm/s MV NDA32urU/A ratio1.7MVA (PHT)5.02cm2 TDI Lateral E' Peak V18.19cm/sMedial E' Peak V13.77cm/sE/Lateral E'5.1 E/Medial E'6.8 Tricuspid Valve TR Peak Kiyunxvo338di/sRAP [id number] Peak Gr.6mmHg [id number] LEFT VENTRICLE The left ventricle is normal size. There is normal left ventricular wall thickness. The left ventricular systolic function is normal. The estimated ejection fraction is 60-65% No regional wall motion abnormalities noted.. The left ventricular diastolic function is normal. No left ventricle thrombus noted on this study. There is no ventricular septal defect visualized. There is no left ventricular aneurysm. There is no mass noted in the left ventricle. RIGHT VENTRICLE The right ventricle is normal size. There is normal right ventricular wall thickness. The right ventricular systolic function is normal. ATRIA The left atrium size is normal. The right atrium size is normal. The interatrial septum is intact with no evidence for an atrial septal defect. AORTIC VALVE The aortic valve is normal in structure. No aortic regurgitation is present. There is no aortic valvular stenosis. There is no aortic valvular vegetation. MITRAL VALVE The mitral valve is normal in structure. There is no evidence of mitral valve prolapse. There is no mitral valve stenosis. There is mild mitral valve regurgitation noted. TRICUSPID VALVE The tricuspid valve is normal in structure. There is trivial tricuspid valve regurgitation noted. RVSP is < 20 mm Hg. There is no tricuspid valve prolapse or vegetation. There is no tricuspid valve stenosis. PULMONIC VALVE The pulmonary valve is normal in structure. There is no pulmonic valvular regurgitation. There is no pulmonic valvular stenosis. GREAT VESSELS The aortic root is normal in size. The ascending aorta is normal in size. The pulmonary artery is normal. The IVC is mildly dilated. PERICARDIAL EFFUSION There is no pericardial effusion. There is no pleural effusion. <Conclusion> The estimated ejection fraction is 60-65% The left ventricular diastolic function is normal. The left atrium size is normal. There is mild mitral valve regurgitation noted. There is trivial tricuspid valve regurgitation noted. RVSP is < 20 mm Hg. The IVC is mildly dilated.
[2018-09-12] MEDS: Oxycodone/Acetaminophen 5/325 mg Tab PO PRN (21:35)
[2018-09-12] MEDS: Lactated Ringer's 1,000 ML IV SCH (21:36)
[2018-09-13] MEDS: Oxycodone/Acetaminophen 5/325 mg Tab PO PRN (05:02)
[2018-09-13] MEDS ORDERED: guaiFENesin 100 mg/5 ml Syrup UD PO ONE (05:13)
[2018-09-13] MEDS ORDERED: Promethazine/Cod 6.25mg-10mg/5ml Syr UD PO STA (05:22)
[2018-09-13] MEDS ORDERED: Albuterol 0.083% Inhal Sol (2.5 mg/3 mL) UD INH ONE (05:28)
[2018-09-13 05:44] LABS: HEMOGLOBIN 10.3 g/dL (12.0-16.0); MEAN CELL VOLUME 88.9 fl (81.0-99.0); MEAN CORPUSCULAR HEMOGLOBIN 29.4 pg (27.0-31.0); MEAN CORPUSCULAR HGB CONC 33.1 g/dL (33.0-37.0); RBC 3.5 Mil/uL (3.80-5.20); WHITE BLOOD COUNT 13.8 K/uL (4.8-10.8)
[2018-09-13 05:54] LABS: ALB/GLOB RATIO 0.9 (1.0-2.1); ALBUMIN 2.1 g/dL (3.5-5.0); ALT/SGPT 22 U/L (9-52); AST/SGOT 27 U/L (14-36); BLOOD UREA NITROGEN 6 mg/dl (7-17); CALCIUM 8.2 mg/dL (8.4-10.2); GFR NON-AFRICAN AMERICAN > 60
[2018-09-13] MEDS: Lactated Ringer's 1,000 ML IV SCH (07:00)
[2018-09-13 08:21] VITALS: PULSE 99
[2018-09-13] MEDS ORDERED: Potassium Chloride 20 mEq ER Tab PO ONE (08:28)
[2018-09-13] MEDS ORDERED: Multivitamin With Minerals Tab PO SCH (09:00)
--- NOTE | 2018-09-13 10:57 | OBPPN ---
Datetime: 09/13/2018 06:17 PP Pain Prov: Within normal limits PP Nausea Prov: Denies PP Flatus Prov: No PP BM Prov: No PP Breasts Prov: Not Done PP Heart Prov: Normal PP Lungs Prov: Normal PP Abdomen/Uterus Prov: Normal PP Lochia Prov: Normal PP Vulva/Perineum Prov: Not Done PP CVA Tenderness Prov: Not Done PP Extremities Prov: Normal PP C/S Incision Prov: Normal PP Impression Prov: Normal progression PP Plan Prov: Continue present management PP Progress Note Prov: POD 1 S: 27 y/o female s/p on 09/12/2018. Patient seen and examined at bedside in ICU. She denies passing gas or stool. Lochia like menses. Tolerating liquid diet. Endorses feeling better, le ss anxious. Physical Exam: GEN: sitting up in chair comfortably Cardio: S1S2 present, RRR Lungs: clear air entry sounds b/l, no wheezing Abdomen: BS+, tenderness to palpation. incision intact, no erythema/swelling/warmth. [place] garima is firm and at the level of the umbilicus. EXT: No edema, calves non-tender to palpation Assessment/Plan: 27 y/o s/pod#1 at 40.5 wks on 09/12/2018 - d/c marie -remove dressing 24 hrs post op -follow up pp cbc - Percocet 5/325mg, and Motrin 600mg prn for pain. - Senokot for constipation - Anticipated discharge is 09/15/2018 Juani Ryan, pgy1 Attending addendum: I saw and examined the patient at bedside in the ICU myself this morning. I reviewed the resident note above and agree with findings and management. Patient is much improved, her labs and imaging reviewed. EKG NST, Echo: wnl, extremity u/s neg for dvt. Replace potassium po. Tolerating po fluids well, d/c IVF. Transfer to unit. Encouraged . Remove dressing today. Mercy Dempsey MD Vital Signs Provider PP: Reviewed
[2018-09-13] MEDS ORDERED: Oxycodone/Acetaminophen 5/325 mg Tab PO PRN ×2 (11:48)
[2018-09-13] MEDS: Simethicone 80 mg Chewtab PO PRN (15:43)
[2018-09-13] MEDS: Sodium Chloride 0.9% 1,000 ML IV SCH (21:36)
[2018-09-14] MEDS: Sodium Chloride 0.9% 1,000 ML IV SCH (03:56)
[2018-09-14 08:24] LABS: ALB/GLOB RATIO 0.9 (1.0-2.1); ALBUMIN 2.3 g/dL (3.5-5.0); ALT/SGPT 31 U/L (9-52); AST/SGOT 27 U/L (14-36); BLOOD UREA NITROGEN 9 mg/dl (7-17); CALCIUM 8.6 mg/dL (8.4-10.2); GFR NON-AFRICAN AMERICAN > 60
[2018-09-14] MEDS: Multivitamin With Minerals Tab PO SCH (10:16)
--- NOTE | 2018-09-14 10:26 | OBPPN ---
Datetime: 09/14/2018 06:28 PP Pain Prov: Within normal limits PP Nausea Prov: Denies PP Flatus Prov: Yes PP BM Prov: No PP Breasts Prov: Not Done PP Heart Prov: Normal PP Lungs Prov: Normal PP Abdomen/Uterus Prov: Normal PP Lochia Prov: Normal PP Vulva/Perineum Prov: Not Done PP CVA Tenderness Prov: Not Done PP Extremities Prov: Normal PP C/S Incision Prov: Normal PP Progress Prov: Normal PP Impression Prov: Normal progression PP Plan Prov: Continue present management Vital Signs Provider PP: Reviewed; Within Normal Limits Datetime: 09/13/2018 21:11 PP Impression Other Prov: hyponatremia PP Plan Other Prov: d/c LR, start NS PP Progress Note Prov: S: 27 y/o female s/pod#1 on 09/12/2018. Seen and examined at [facility] in post unit. She denies dizziness, fatigue, thirst, nausea, headache, or confusion. Amb ulating without difficulty. O: Cardio: S1S2 present, RRR, Lungs: clear air entry sounds b/l, no wheezing, Extremities: No caryl a, calves non-tender to palpation Assessment: 27 y/o s/pod#1 at 40.5 wks on 09/12/2018 w/ hyponatremia Plan: Spoke w/ Dr. Hernandez, tester electronic scale hospitalist, appreciate recommendations. Fluid restriction to 1L per day. Discontinue LR. Start 0.9% NaCl- 2L IV @150mL/hr to correct hyponatremia. Will follow up CM P in AM. Case discussed w/ attending, Dr. Marielena Ryan, pgyi OB Hospitalist on-call...Case rev'd with PGY1 agree with note FALGUNI HARRISON PP Procedures: None
[2018-09-14] MEDS ORDERED: Tdap Vaccine 0.5 ml Vial (10-64 yrs) IM ONE (18:00)
[2018-09-15] MEDS: Multivitamin With Minerals Tab PO SCH (09:14)
[2018-09-15] MEDS: Simethicone 80 mg Chewtab PO PRN (09:14)
--- NOTE | 2018-09-15 09:49 | OBPN ---
Datetime: 09/12/2018 11:46 IP Progress Impression: Arrest of dilatation/descent IP Progress Note Comment: Pt with arrest of dilatation as well as repetitive FHT decelerations. Dis cussed with patient the need for delivery and discussed the R/B/A of surgery with patient. All patient questions answered and patient agrees with plan. Datetime: 09/12/2018 06:00 IP Progress Plan: Continue present management Gestation - Est Wks by US: 41.5 Vital Signs Provider: Reviewed; Within Normal Limits Datetime: 09/11/2018 19:00 IP Progress Plan Other: duplex bilateral u/s ordered IP Progress Impression Other: Leg swelling R>L Datetime: 09/11/2018 16:15 IP Procedures: Artificial ROM Membranes, Provider: Ruptured Amniotic Fluid Color, Provider: Clear Contraction Comments Provider: Q2-4 min FHR - Baseline A Provider: 130 Presentation-Admit: Vertex NICHD Accel Fetus A IP Provider: 15X15 FHR Category Provider Fetus A: Category I NICHD Variability Prov Fetus A: Moderate 6-25bpm Dilatation, Provider: 3 Effacement, Provider: 20 Station, Provider: -2 NICHD Decel Fetus A IP Provider: None Datetime: 09/11/2018 10:21 IP Informed Consent Obtain: Vaginal Delivery Datetime: 09/11/2018 05:00 Pool Provider: Positive Nitrazine Provider: Positive
--- NOTE | 2018-09-15 10:58 | OBDS ---
DELIVERY PERSONNEL Delivery Doctor: Sruthi Partida MD/Dr Federico Andrade(OB Fellow) Conventions Assistant: [facility] [address] Resident: Dr Kenji Gonsalves MATERNAL INFORMATION Delivery Anesthesia: Epidural Medications in Delivery: Pitocin Estimated Blood Loss (ml): 800 Placenta Cultured: No Maternal Complications: Other RN Comments: Pt transferred to ICU room 422 for suspected amniotic fluid embolus(?) Provider Comments: 1'LFT C/S Pt delivered viable with apgars 9/9. Normal uterus, tubes and ovaries bilaterally. Pt german erated procedure well. Pt transferred to ICU following procedure due to temporary bradycardic and hy pertensive event in OR. Pt stable with VSS at completion of surgery. EBL 800cc IVF 1600cc LR OU 100cc Refer to dictation LABOR SUMMARY EDC: 08/31/2018 00:00 No. Babies in Womb: 1 Attempted: No Labor Anesthesia: Epidural LABOR INFORMATION Reason for Induction: Postterm Cervical Ripening Agents: Cytotec @ 50 Oxytocin: Augmentation Group B Beta Strep: Negative Antibiotics # of Doses: Ancef 2 grams IVPB and Ziithromax 500mg IVPB Antibiotics Time of Last Dose: 1130 and 1200 Steroids Given: None Reason Steroids Not Administered: Not Applicable MEMBRANES Membranes Rupture Method: Spontaneous Rupture of Membranes: 09/11/2018 15:25 Length of Rupture (hrs): 20.80 Amniotic Fluid Color: Light Meconium Amniotic Fluid Amount: Small Amniotic Fluid Odor: Normal STAGES OF LABOR Stage 3 hrs: 0 Stage 3 min: 1 CSECTION DELIVERY Primary Indication: Arrest of Descent/recurrent late Decels CSection Urgency: Emergency CSection Incidence: Primary Labor: Labor CSection Incision: Lower Uterine Transverse BABY A INFORMATION Delivery Date/Time: 09/12/2018 12:13 Method of Delivery: Born in Route : No : N/A Forceps: N/A Vacuum Extraction: N/A Shoulder Dystocia : No SHOULDER DYSTOCIA BABY A Delivery Date/Time: 09/12/2018 12:13 PRESENTATION/POSITION BABY A Presentation: Cephalic Cephalic Presentation: Vertex Breech Presentation: N/A PLACENTA INFORMATION BABY A Placenta Delivery Time : 09/12/2018 12:14 Placenta Method of Delivery: Expressed Placenta Status: Delivered SCORES BABY A Heart Rate 1 min: >100 bpm Resp Effort 1 min: Good Cry Reflex Irritability 1 min: Cough or Sneeze or Pulls Away Muscle Tone 1 min: Active Motion Color 1 min: Body [place], Extremities Blue Resuscitation Effort 1 min: Tactile Stimulation SCORE 1 MIN: 9 Heart Rate 5 min: >100 bpm Resp Effort 5 min: Good Cry Reflex Irritability 5 min: Cough or Sneeze or Pulls Away Muscle Tone 5 min: Active Motion Color 5 min: Body [place], Extremities Blue Resuscitation Effort 5 min: N/A SCORE 5 MIN: 9 INFORMATION BABY A Gestational Age at Delivery: 41.5 Gestational Status: Post-term Infant Outcome : Liveborn Condition : Stable Infant Sex: Male IDENTIFICATION/MEDS BABY A ID Band Number: [id number] ID Band Location: Left Leg; Left Arm Vitamin K Given : Not Given Erythromycin Given: Not Given WEIGHT/LENGTH BABY A Birthweight (gms): 3750 Infant Weight (lb): 8 Weight (oz): 4 Infant Length Inches: 20.50 Infant Length cms: 52.1 CORD INFORMATION BABY A No. Cord Vessels: 3 Nuchal Cord : N/A Nuchal Cord Other: n/a True Knot: n/a Infant Cord pH Baby Arterial: n/a Infant Cord pH Baby Venous: n/a Cord Blood Taken: Yes Banking/Donate Info: n/a Infant Suction: None ASSESSMENT BABY A Complications: None Physical Findings at Delivery: Within Normal Limits Respirations: Appears Normal Parking Officer/ALS Called : No Infant Care By: Bonnie /Juan Pablo/Funmilayo Transferred To: Remains with Mother
--- NOTE | 2018-09-15 11:05 | OBDS ---
DELIVERY PERSONNEL Delivery Doctor: Sruthi Partida MD/Dr Federico Andrade(OB Fellow) [facility] Resident: Dr Kenji Gonsalves MATERNAL INFORMATION Delivery Anesthesia: Epidural Medications in Delivery: Pitocin Estimated Blood Loss (ml): 800 Placenta Cultured: No Maternal Complications: Other RN Comments: Pt transferred to ICU room 422 for suspected amniotic fluid embolus(?) Provider Comments: 1'LFT C/S Pt delivered viable with apgars 9/9. Normal uterus, tubes and ovaries bilaterally. Pt german erated procedure well. Pt transferred to ICU following procedure due to temporary bradycardic and hy pertensive event in OR. Pt stable with VSS at completion of surgery. EBL 800cc IVF 1600cc LR OU 100cc Refer to dictation LABOR SUMMARY EDC: 08/31/2018 00:00 No. Babies in Womb: 1 Attempted: No Labor Anesthesia: Epidural LABOR INFORMATION Reason for Induction: Postterm Cervical Ripening Agents: Cytotec @ 50 Cervical Ripening Agents: Cytotec @ 50 Cervical Ripening Agents: Cytotec @ 50 Cervical Ripening Agents: Cervidil Oxytocin: Augmentation Group B Beta Strep: Negative Antibiotics # of Doses: Ancef 2 grams IVPB and Ziithromax 500mg IVPB Antibiotics Time of Last Dose: 1130 and 1200 Steroids Given: None Reason Steroids Not Administered: Not Applicable MEMBRANES Membranes Rupture Method: Spontaneous Rupture of Membranes: 09/11/2018 15:25 Rupture of Membranes: 09/11/2018 05:00 Length of Rupture (hrs): 20.80 Length of Rupture (hrs): 31.22 Amniotic Fluid Color: Light Meconium Amniotic Fluid Color: Clear Amniotic Fluid Color: Clear Amniotic Fluid Amount: Small Amniotic Fluid Amount: Small Amniotic Fluid Amount: Small Amniotic Fluid Odor: Normal Amniotic Fluid Odor: Normal STAGES OF LABOR Stage 3 hrs: 0 Stage 3 min: 1 CSECTION DELIVERY Primary Indication: Arrest of Descent/recurrent late Decels CSection Urgency: Emergency CSection Incidence: Primary Labor: Labor CSection Incision: Lower Uterine Transverse BABY A INFORMATION Infant Delivery Date/Time: 09/12/2018 12:13 Method of Delivery: Born in Route : No : N/A Forceps: N/A Vacuum Extraction: N/A Shoulder Dystocia : No SHOULDER DYSTOCIA BABY A Infant Delivery Date/Time: 09/12/2018 12:13 PRESENTATION/POSITION BABY A Presentation: Cephalic Cephalic Presentation: Vertex Breech Presentation: N/A PLACENTA INFORMATION BABY A Placenta Delivery Time : 09/12/2018 12:14 Placenta Method of Delivery: Expressed Placenta Status: Delivered SCORES BABY A Heart Rate 1 min: >100 bpm Resp Effort 1 min: Good Cry Reflex Irritability 1 min: Cough or Sneeze or Pulls Away Muscle Tone 1 min: Active Motion Color 1 min: Body [place], Extremities Blue Resuscitation Effort 1 min: Tactile Stimulation SCORE 1 MIN: 9 Heart Rate 5 min: >100 bpm Resp Effort 5 min: Good Cry Reflex Irritability 5 min: Cough or Sneeze or Pulls Away Muscle Tone 5 min: Active Motion Color 5 min: Body [place], Extremities Blue Resuscitation Effort 5 min: N/A SCORE 5 MIN: 9 INFANT INFORMATION BABY A Gestational Age at Delivery: 41.5 Gestational Status: Post-term Infant Outcome : Liveborn Condition : Stable Infant Sex: Male IDENTIFICATION/MEDS BABY A ID Band Number: [id number] ID Band Location: Left Leg; Left Arm Vitamin K Given : Not Given Erythromycin Given: Not Given WEIGHT/LENGTH BABY A Infant Birthweight (gms): 3750 Weight (lb): 8 Infant Weight (oz): 4 Infant Length Inches: 20.50 Infant Length cms: 52.1 CORD INFORMATION BABY A No. Cord Vessels: 3 Nuchal Cord : N/A Nuchal Cord Other: n/a True Knot: n/a Cord pH Baby Arterial: n/a Infant Cord pH Baby Venous: n/a Cord Blood Taken: Yes Banking/Donate Info: n/a Infant Suction: None ASSESSMENT BABY A Complications: None Physical Findings at Delivery: Within Normal Limits Respirations: Appears Normal Telemetry Rn/ALS Called : No Infant Care By: Bonnie /Juan Pablo/Funmilayo Transferred To: Remains with Mother
[2018-09-15 18:09] VITALS: BP 137/80; RESP 20; TEMP 98.9; O2SAT 100
--- NOTE | 2018-09-15 18:20 | OBPPN ---
Datetime: 09/15/2018 10:55 PP Pain Prov: Within normal limits PP Nausea Prov: Denies PP Flatus Prov: Yes PP BM Prov: Yes PP Breasts Prov: Not Done PP Heart Prov: Normal PP Lungs Prov: Normal PP Abdomen/Uterus Prov: Normal PP Lochia Prov: Normal PP Vulva/Perineum Prov: Normal PP CVA Tenderness Prov: Normal PP Extremities Prov: Normal PP C/S Incision Prov: Normal PP Progress Prov: Normal PP Impression Prov: Normal progression PP Plan Prov: Continue present management; Discharge PP Progress Note Prov: POD 3 S: 27 yo s/p on 09/12/2018. Pt. is seen and examined at bedside this AM. No overnigh t events. Pt reports mild abdominal pain, but well controlled with pain meds. D/c marie, dressing rem lizabeth, incision site healing well, no exudate seen, dry and intact. No nausea, advised to advance diet as tolerated. Breast feeding without difficulty. Lochia is similar to menses volume. No bowel moveme nt, but passing gas per rectum. Denies fever/chills, diarrhea, nausea/vomiting, chest pain, dyspnea, and dizziness. O: Vitally stable GEN: Patient is comfortable. In no acute distress. Cardio: S1S2, no murmurs, gallops or rubs. Lungs: clear air entry sounds b/l, no wheezing Abdomen: BS+, tenderness to palpation. Incision scar noted, well healing with no exudate seen, dry and intact. Uterus is firm and at the level of the umbilicus. EXT: No edema, calves non-tender to palpation NEURO/PSYCH: AAOx3 Assessment/Plan: 27 yo s/p on 09/12/2018. Pt remains afebrile, tolerating pain with medication, doing well on POD#3. OOB with caution 1. SCDs for DVT prophylaxis, encouraged ambulating 2. Percocet 5/325mg, and Motrin 600mg for pain. 3. Colace 100mg PO BID 4. Encourage and ambulating 5. f/u CBC post op: 10.3/31.1 6. D/C home today, 09/15/2018. --- Renu Beard MD PGY-1 Attending Note: Patient was discussed with the resident and I agree with the above assessment. IP PP Procedures: None Vital Signs Provider PP: Reviewed; Within Normal Limits
--- NOTE | 2018-09-15 18:20 | OBDCSUM ---
Datetime: 09/15/2018 10:52 Discharged to, Provider: Home Follow up at, Provider: Dr. Mota Disch Instr Activity: Normal activity; May Shower Disch Instr Diet: Regular Discharge Instructions, Provider: Routine instructions given Discharge Diagnosis, Provider: Postterm Delivery Discharge Time: 09/15/2018 10:00 Follow up in weeks, Provider: 1 week for wound check Disch Referrals: None Contraception discussed, Prov: Yes Disch Activity Restrictions: No exercising; No lifting; No sexual activity; Nothing in vagina - Inte rcourse, tampons, douche Discharge Comment, Provider: Dicharge Summary DOA: 09/11/2018 EGA: 41.2 Diagnosis: due Arrest of decent/Recurrent late decelerations Summary of : 27 yo s/p Primary due to Arrest of decent at 41.2 weeks on 06/2019. L_D summary: Patient transferred to ICU S/P due to suspected amniotic fluid embolism. EK G and Echocardiogram done were WNL. Patient remained stable in ICU with VSS. Patient transferred to P ostpartum. Pain was well controlled with pain meds. D/c marie, dressing removed, incision site healin g well, no exudate seen, dry and intact. No nausea, advised to advance diet as tolerated. Breast feed ing without difficulty and supplementing with formula. Lochia is similar to menses volume. Reports sh adelia has been having regular bowel movements. DOL: 09/12/2018 at 12:13 repeat for PROM NB: Male : 05/[birth year] Weight: 3750 gm No serious complications during PP. Lochia= menses, mild pain, controlled with medications Rubella immune, Tdap 09/14/18 Blood type: O+ CBC pp: 10.3/31.1 Discharge Date: 09/15/2017 Time 10:00 AM Discharge Instructions: -Encourage -Percocet/Ibuprofen for moderate-severe pain PRN -Ibuprofen 600 mg tab Q6hr PRN for mild pain -Ambulate as tolerated -f/u NB visit 3-7 days w/ slip bridge operator and PP visit 6 weeks with OB; Wound care 4-7 days - Appoint ment scheduled at [facility]. ED precautions: If excessive bleeding, pain that does not get relief, fever >100.4, palpitations, SOB, CP or other concerning symptom go to the ED PT was urged if feeling sad, mood swing, depression, neglect of baby, suicidal thoughts, homicidal thoughts go to ER or call 911 for help Pt should go to her Primary care doctor if have difficulty with breast feeding F/U in 4-6 week for PP visit with PMD. --- Renu Beard MD PGY-1 Discharge Diagnosis Prov Other: S/P Ucomplicated Delivery Contraception after Delivery: Not Planning to Use Datetime: 09/15/2018 08:00 Discharged to, Provider: Home Follow up at, Provider: Dr. Mota Disch Instr Activity: Normal activity Disch Instr Diet: Regular Discharge Time: 09/15/2018 10:00 Follow up in weeks, Provider: 1 week Disch Referrals: None Disch Activity Restrictions: No exercising; No lifting; No driving; No sexual activity; Nothing in v agina - [place], tampons, douche
--- NOTE | 2018-09-15 21:17 | OP ---
PROCEDURE DATE: 09/12/2018 PREOPERATIVE DIAGNOSES: Arrest of dilatation in active labor, recurrent heart tracing decelerations. POSTOPERATIVE DIAGNOSES: Arrest of dilatation in active labor, recurrent heart tracing decelerations. OPERATION PERFORMED: Primary low flap transverse section via Pfannenstiel incision. OPERATIVE FINDINGS: Viable with Apgars of 9 and 9 at 1 and 5 minutes respectively, normal uterus, normal tubes and ovaries bilaterally. ESTIMATED BLOOD LOSS: 800 mL. FLUIDS: 1600 mL lactated Ringer's. URINE OUTPUT: 100 mL of clear urine at the end of procedure. SURGEON: Petr Partida MD HASSOCK MAKER: Dr. Antonia Andrade. ANESTHESIOLOGIST: Nic Styles MD ANESTHESIA: Epidural. DESCRIPTION OF PROCEDURE: The patient was taken to the operating room where epidural anesthesia was found to be adequate. The patient was prepped and draped in a normal sterile fashion in the dorsal supine position with a leftward tilt. A Pfannenstiel skin incision was made with the scalpel. This was carried down through to the underlying layer of fascia with the scalpel. A midline defect was made in the fascial layer with the scalpel. The fascial incision was then extended bilaterally sharply with curved Lawrence scissors. The fascial layer was from the underlying rectus muscles both bluntly and sharply with curved Lawrence scissors. The rectus muscles were at the midline. The peritoneum was then identified, tented up with Yuly clamps x2, and entered sharply with Metzenbaum scissors. This peritoneal incision was then extended superiorly and inferiorly with good visualization of the urinary bladder. Bladder blade was inserted into the abdomen. The vesicouterine peritoneum was then identified, tented upward with Yuly clamps x2, and entered sharply with Metzenbaum scissors. This peritoneal incision was then extended bilaterally with Metzenbaum scissors. The bladder flap was created digitally. The Daisy retractor was placed over the urinary bladder. The uterus was incised with the scalpel. The uterine incision was extended bilaterally bluntly. The 's head was delivered atraumatically. Nose and mouth were suctioned with bulb suction. The remainder of the was delivered without complication. The cord was clamped and cut. The infant was handed off to awaiting pediatricians. The cord gases were collected. Cord blood was collected. The placenta was removed manually. The uterus was cleared of all clots and debris. The uterine incision was repaired with 0 Vicryl in a running, locked fashion. The second layer with same suture was used to imbricate the first and to obtain excellent hemostasis. The abdomen and pelvis were irrigated with copious amounts of warm normal saline. Re-inspection of the uterine incision proved excellent hemostasis. All instruments were removed from the patient. The peritoneal layer was closed with a running stitch of 2-0 chromic. The rectus muscles were reapproximated in the midline with a running stitch of 2-0 chromic. The fascial layer was closed with a running stitch of 0 Vicryl. Subcutaneous tissue was closed with a running stitch of 3-0 plain. The skin was closed with don. The patient tolerated the procedure well. All sponge, lap, and needle counts were correct x2. The patient was given 2 g of Ancef just prior to the beginning of the procedure. Shortly after delivery of the , the patient had episode of bradycardia and hypertension. This only lasted approximately 2 to 3 minutes. After this episode, the patient with vital signs stable throughout remainder of surgery. Due to this episode, and based on anesthesiologist recommendation, after surgery completed, the patient was transferred to ICU for observation. The patient tolerated the procedure well. All sponge, lap, and needle counts were correct x2. There were no complications. The patient was given 2 g of Ancef just prior to the beginning of the procedure. The patient was taken to the recovery room in awake and stable condition. Petr Partida MD
== END 2018-09-15 12:38 | disposition home or self-care (01) | DRG 540 ==
LOC: H.L&D 19:38 → H.ICU/CCU 09-12 13:17 → H.OB/GYN 09-13 10:28
PROVIDERS: ADMIT Obstetrics & Gynecology; ATTEND Obstetrics & Gynecology
PROC: 4A1HXCZ Monitoring of Products of Conception, Cardiac Rate, External Approach (ICD-10-PCS; 2018-09-09)
PROC: 10D00Z1 Extraction of Products of Conception, Low, Open Approach (ICD-10-PCS; principal; 2018-09-12)
DX: O76 Abnormality in fetal heart rate and rhythm complicating labor and delivery (principal); N85.8 Other specified noninflammatory disorders of uterus; O48.0 Post-term pregnancy; Z37.0 Single live birth; O34.211 Maternal care for low transverse scar from previous cesarean delivery; O62.0 Primary inadequate contractions; Z3A.41 41 weeks gestation of pregnancy